=== PATIENT | female | born 1960 | race Caucasian/White ===

== ENCOUNTER 2017-06-08 11:27 | Emergency (ER) | payer OTHER ==
[~2017-06-08] VITALS: Ht 167.6 cm; Wt 70.3 kg
--- NOTE | ~2017-06-08 | CR72 ---
[facility] A Service of [facility] & [facility] RADIOLOGY TEXT RESULTS PATIENT: GUANAKO CLAY LOCATION: [facility] : 60 UNIT #: [id number] AGE: [address]: Pratik Woo MD SEX: F ORDER DR: [id number] [facility] [address] [place], [place] [address] [id number] MR#: [id number] Acc #: [id number] NAME: GUANAKO CLAY. : 1960 SEX: F STUDY DATE/TIME: UNIT: [facility] ROOM: STUDY DESCRIPTION: CR Chest Single View Portable Attending Physician: Pratik Woo M.D. Ordering Physician: Pratik Woo M.D. Primary Care Physician: Mercedez Cox M.D. MEDICAL IMAGING REPORT This report is preliminary unless electronic signature is present EXAM Chest portable 06/08/2017 1216 hours HISTORY 3-day history of shortness of air. History of hypertension, emphysema, right-sided chest pain. History of cervical cancer. COMPARISON 09/11/2016 FINDINGS Portable upright chest demonstrates normal cardiac, mediastinal and hilar contours. Lungs are mildly hyperinflated with calcified granulomata. No definite acute pulmonary density or pleural effusion. IMPRESSION Stable mild hyperinflation with calcified granulomatous change. There is no acute cardiopulmonary findings. Dictated by... Paige Douglas M.D. THIS IS AN ELECTRONICALLY VERIFIED REPORT Paige Douglas M.D. at 06/09/2017 8:53 AM RUPINDERM/rhiannon TD: 06/08/2017 18:19 JOB #: [id number] MEDICAL IMAGING REPORT Page 1 of 1 COPY
--- NOTE | ~2017-06-08 | EKG ---
PATIENT: GUANAKO CLAY UNIT #: [id number] Ventricular Rate: 74 BPM Atrial Rate: 73 BPM QRS Duration: 82 ms Q-T Interval: 410 ms QTC Calculation(Bezet): 455 ms Calculated R [place]: 14 degrees Calculated T [place]: 23 degrees Diagnosis Line: Accelerated Junctional rhythm Diagnosis Line: Abnormal ECG Diagnosis Line: When compared with ECG of 11-SEP-2016 13:34, Diagnosis Line: Junctional rhythm has replaced Sinus rhythm Diagnosis Line: Confirmed by TARIQ QUINTANA MD ([id number]) on Diagnosis Line: 06/09/2017 7:32:47 AM INTERPRETING MD: MARIANO COX
[~2017-06-08 11:27] MED LIST: ALBUTEROL17 GM INH; AMBIEN PO; BACTRIM DS TABL1 TA1 PO; CERTAGEN PO; CLIMARA1 PATCH.WK TOP; DEPO MEDROL INJ; FLEXERIL PO; FLEXERIL10 M1 PO; FLEXERIL10 MG PO; FLONASE 0.05% N16 G1; FLONASE16 GM; HYDROCODON-ACE1 EAC5 PO; HYDROMET SYRUP480 ML PO; IBUPROFEN PO; KETOPROFEN PO; LIDODERM30 EA TOP; LORTAB 5/500 TA1 TA2 PO; MACROBID100 M1 PO; MACRODANTIN PO; MELATIN3 MG PO; METHADONE PO; MOBIC15 MG PO; MULTI VITAMIN1 EACH PO; NAPROSYN375 MG PO; NEURONTIN600 MG PO; NEURONTIN800 MG PO; ORUDIS75 M1 PO; OXYCODONE HCL20 M1 PO; PANTOPRAZOLE SO20 MG PO; PERCOCET PO; PERCOCET7.5 PO; PHENERGAN PO; PHYSICIAN; POLYGESIC 5/5001 CAP; PREDNISONE PO; PYRIDIUM100 MG PO; SOMA; SYNTHROID0.1 MG PO; VICODIN 5/500 T1 TAB PO; VICODIN PO; VISTARIL PO; VOLTAREN50 MG PO; VOLTAREN75 MG PO; ZANAFLEX4 M1 PO; ZITHROMAX PO
[2017-06-08 12:18] LABS: POC - CKMB <1.0 ng/mL (0.0-7.9); POC - TROPONIN <0.05 ng/mL (<=0.05)
[2017-06-08 12:36] LABS: BASOPHIL% 0.4 % (0-2.5); EOSINOPHIL# 0.4 X10e3 (0-0.7); EOSINOPHIL% 4.7 % (0.0-7.0); HEMATOCRIT 39.7 % (35.0-45.0); HEMOGLOBIN 13.1 gm/dL (12.0-16.0); LYMPHOCYTE# 2.5 X10e3 (1.0-3.5); LYMPHOCYTE% 28.3 % (17.0-45.0); MONOCYTE# 0.3 X10e3 (0-1.0); MONOCYTE% 3.7 % (3.0-12.0); NEUTROPHIL# 5.6 X10e3 (1.5-7.1); NEUTROPHIL% 62.9 % (40-75); PLATELET COUNT 221 X10e3 (140-420); RED BLOOD COUNT 4.36 X10e (3.90-5.30); RED CELL DISTRIBUTION WIDTH 12.5 % (11.0-15.5); WHITE BLOOD COUNT 8.9 X10e3 (4.0-10.5)
[2017-06-08 12:37] LABS: DIFF IND NO
[2017-06-08 12:50] LABS: INR 0.9; PROTHROMBIN TIME (PATIENT) 9.9 SECONDS (10.0-11.7)
[2017-06-08 13:06] LABS: BILIRUBIN, DIRECT 0.1 mg/dL (0.0-0.2); BILIRUBIN,INDIRECT 0.7 mg/dL (0.0-0.9); BILIRUBIN,TOTAL 0.8 mg/dL (0.2-2.0); CALCIUM SERUM 9.2 mg/dL (8.4-10.2); CREATININE SERUM 0.7 mg/dL (0.6-1.4); GLOM FILT RATE Estimated 96.9 mL/min (>60); POTASSIUM 3.8 mmol/L (3.5-5.1); PROTEIN TOTAL SERUM 6.4 g/dL (6.0-8.3)
== END 2017-06-08 14:30 | disposition home or self-care (01) ==
LOC: CED 11:27
PROVIDERS: Emergency Medicine
DX: R09.1 Pleurisy (principal); L03.313 Cellulitis of chest wall; F17.200 Nicotine dependence, unspecified, uncomplicated; Z88.0 Allergy status to penicillin; Z88.5 Allergy status to narcotic agent; Z88.8 Allergy status to other drugs, medicaments and biological substances
CPT/HCPCS: 36415; 71010; 80048; 80076; 82553; 83605; 83880; 84484; 85025; 85379; 85610; 87040; 93005; 96374; 99285; J1885